=== PATIENT | female | born 1970 | race Asian ===

== ENCOUNTER 2022-04-10 09:55 | Outpatient (CLI) | payer OTHER | END 2022-04-10 09:56 | disposition home or self-care (01) | LOC: CSHMAMMO 09:55 | PROVIDERS: ATTEND Family Medicine | DX: Z12.31 Encounter for screening mammogram for malignant neoplasm of breast (principal) | CPT/HCPCS: 77063; 77067 ==

== ENCOUNTER 2023-04-17 10:38 | Outpatient (CLI) | payer OTHER | END 2023-04-17 10:39 | disposition home or self-care (01) | LOC: CSHMAMMO 10:38 | PROVIDERS: ATTEND Nurse Practitioner Family | DX: Z12.31 Encounter for screening mammogram for malignant neoplasm of breast (principal) | CPT/HCPCS: 77063; 77067 ==

== ENCOUNTER 2025-04-21 09:00 | Outpatient (CLI) | payer OTHER | END 2025-04-21 09:01 | disposition home or self-care (01) | LOC: CSHMAMMO 09:00 | PROVIDERS: ATTEND Family Medicine | DX: Z12.31 Encounter for screening mammogram for malignant neoplasm of breast (principal) | CPT/HCPCS: 77063; 77067 ==